=== PATIENT | female | born 1960 | race Caucasian/White ===

== ENCOUNTER 2021-10-10 10:31 | Emergency (ER) | payer BC ==
--- OUTSIDE RECORDS SUMMARY | 2021-10-10 10:36 | XMS REPORT | Continuity of Care Document ---
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 Medications Ordered Filled Start Stop Current Ordering Indication Dosage Frequency Signature Comments Components Source Medication Medication Date Date Medication? Clinician (SIG) Name Name Albuterol Albuterol 2017-08 Yes Alec [address] [facility] Sulfate HFA Sulfate HFA 2-26 [facility] Augmentin Augmentin 2017-08 Yes Alec [address] [facility] 2[facility] Vanacof DM Vanacof DM 2017-08 Yes Alec [address] [facility] 2-26 [facility] DayQuil DayQuil Yes Alec not [facility] Multi-Sympt Multi-Sympt [facility] defined [facility] NyQuil NyQuil Yes Alec not [facility] Procedures This patient has no known procedures. Encounters Start End Encounter Admission Attending Care Care Encounter Source Date/Time Date/Time Type Type Clinicians Facility Department ID 2021-09-14 Outpatient Sunday Wilde [facility] [id number] 11:12:56 [id number] [facility] 2019-10-28 2019-10-28 Outpatient Jed Cordoba [id number] [facility] [address] 10:30:00 10:30[facility] 2018-10-03 2018-10-03 Outpatient Jed Cordoba [address] 09:00:00 09:00:00 [facility] Results This patient has no known results.
--- NOTE | 2021-10-10 11:03 | RAD REPORT ---
EXAM DESCRIPTION: CT - Ct Stroke Brain Wo Cont - 10/10/2021 10:56 am CLINICAL HISTORY: NUMBNESS, code stroke exam COMPARISON: HEAD BRAIN W O CONTRAST dated 09/06/2014 TECHNIQUE: Axial 5 millimeter thick images of the head were obtained without IV contrast. All CT scans are performed using dose optimization technique as appropriate and may include automated exposure control or mA/KV adjustment according to patient size. FINDINGS: No intracranial hemorrhage, mass, or cerebral edema. No acute cortical based infarction. N o cortical edema or sulcal effacement. No extra-axial fluid collections. Howe matter-white matter di fferentiation is preserved.Brainstem and posterior fossa assessment is inherently limited on CT imagi ng. No abnormality suspected. Visualized portions of the mastoid air cells, paranasal sinuses, and orbits are unremarkable. Findings telephoned to Jason Page 10:58 p.m. IMPRESSION: No CT evidence of acute intracranial process.
[2021-10-10] MEDS ORDERED: ASPIRIN 81 MG CHEWABLE TABLET ONE (11:19)
[2021-10-10] MEDS ORDERED: NA CHLORIDE 0.9% 1,000 ML ONE (11:19)
[2021-10-10 11:20] LABS: Absolute Lymphocytes (CBC) 1.5 K/uL (0.7-4.9); Hematocrit 40.6 % (36.0-45.0); Lymphocytes % 31.4 % (15.3-44.8); MPV 7.8 fL (7.6-11.3); RBC Red Blood Cell Count 4.44 M/uL (3.86-4.86)
[2021-10-10] MEDS ORDERED: FOLIC ACID 5 MG/ML VIAL ONE (11:20)
[2021-10-10 11:25] LABS: Protime INR 0.97
--- NOTE | 2021-10-10 11:25 | RAD REPORT ---
EXAM DESCRIPTION: RAD - Chest Single View - 10/10/2021 11:18 am CLINICAL HISTORY: COUGH COMPARISON: Portable October 2014 TECHNIQUE: AP portable chest image was obtained 10/10/2021 11:18 am . FINDINGS: No focal mass or consolidation. Interstitial pattern is prominent but not clearly differen t. Prominent overlying soft tissues and under penetrated technique accentuate each lung base. Heart s ize is upper normal. Pericardial fat pads are present. Size is stable. Vasculature in the upper lung mcgee similar to comparison. No measurable pleural effusion and no pneumothorax. No acute bony abnor mality seen. No acute aortic findings suspected. IMPRESSION: No acute cardiopulmonary process. No significant change from comparison study.
--- NOTE | 2021-10-10 11:41 | RAD REPORT ---
EXAM DESCRIPTION: - CP - 10/10/2021 11:26 am CLINICAL HISTORY: Dizziness;Weakness COMPARISON: No comparisons TECHNIQUE: Real-time sonographic evaluation of bilateral carotid and vertebral systems was performed . Howe scale and Doppler interrogation were performed with waveform tracing bilaterally. FINDINGS: Normal high resistance waveforms are noted in both external carotid arteries. The common c arotid arteries and internal carotid arteries show normal low resistance waveforms. Small amount of calcified plaquing changes present in the left carotid bulb and the left bulb ECA xiomara ction. Visually there is no significant luminal narrowing. No significant plaquing noted on the right . Peak systolic and end diastolic velocity values and the ICA/CCA ratios are in the non-hemodynamical ly significant range. Antegrade flow seen in both vertebral arteries. Velocity values and ratios were recorded and are retained in the patient's imaging records. IMPRESSION: Mild left-sided carotid bulb atherosclerotic plaquing without visual evidence for lumina l narrowing. No significant plaquing changes in the right-sided carotid vasculature. No evidence of a hemodynamically significant stenosis.
[2021-10-10 11:43] LABS: ALT/SGPT 40 U/L (12-78); AST/SGOT 26 U/L (15-37); Albumin 3.9 g/dL (3.4-5.0); Alkaline Phosphatase 65 U/L (45-117); BUN Blood Urea Nitrogen 12 mg/dL (7-18); Bicarbonate 29 mmol/L (21-32); Bilirubin Direct < 0.1 mg/dL (0-0.2); Bilirubin Total 0.4 mg/dL (0.2-1.0); C-Reactive Protein 7.16 mg/L (<3.00); Glucose Level 104 mg/dL (74-106); Magnesium 2.1 mg/dL (1.8-2.4); NT PRO-BNP 199 pg/mL (<125); Potassium 3.8 mmol/L (3.5-5.1); Protein, Total 7.3 g/dL (6.4-8.2); Sodium Level 140 mmol/L (136-145)
--- NOTE | 2021-10-10 12:12 | RAD REPORT ---
EXAM DESCRIPTION: MRI - Brain Wo Cont - 10/10/2021 11:42 am CLINICAL HISTORY: TIA COMPARISON: MRI BRAIN W WO CONTRAST dated 09/06/2014; Ct Stroke Brain Wo Cont dated 10/10/2021 TECHNIQUE: Sagittal T1-weighted images were obtained along with axial PD, heavily T2-weighted and T2 -FLAIR images. Axial DWI and ADC mapping sequences were also obtained along with coronal heavily T2-w eighted images. FINDINGS: No intracranial hemorrhage, mass or acute infarction. There is no edema or shift of midlin e structures. No extra-axial fluid collections. Howe-matter/white matter junction is preserved. Signa l voids are seen as a normal finding in the major intracranial vessels. No measurable atrophy or chronic ischemic changes seen. Ventricles are normal. No globe or orbital co ntent abnormality seen. Mastoid air cells and paranasal sinuses are clear. No sella or supra sella abnormality. IMPRESSION: Unremarkable noncontrast MRI brain examination. No significant change from 2015 MRI.
--- NOTE | 2021-10-10 12:27 | ER ---
Nurse's Notes [facility] Name: Alysha Sam Age: 61 yrs Sex: Female : 1960 Arrival Date: 10/10/2021 Time: 10:33 Bed 20 Private MD: Diagnosis: Weakness;Essential (primary) hypertension Presentation: 10/10 10:39 Chief complaint: Patient states: Numbness to R side of face, R arm, and R hand, also ph reports general weakness, states that numbness began at approx 0830 today. Coronavirus screen: Vaccine status: Patient reports receiving the 2nd dose of the covid vaccine. Ebola Screen: No symptoms or risks identified at this time. Initial Sepsis Screen: Does the patient meet any 2 criteria? No. Patient's initial sepsis screen is negative. Does the patient have a suspected source of infection? No. Patient's initial sepsis screen is negative. Risk Assessment: Do you want to hurt yourself or someone else? Patient reports no desire to harm self or others. Onset of symptoms was October 10, 2021. 10:39 Method Of Arrival: Ambulatory ph 10:42 Acuity: JONATAN 2 ph Triage Assessment: 12:58 General: Appears in no apparent distress. Behavior is calm, cooperative, appropriate ll1 for age. Pain: Denies pain. Historical: - Allergies: 10:41 No Known Allergies; ph - PMHx: 10:41 Hyperlipidemia; ph - Immunization history:: Client reports receiving the 2nd dose of the Covid vaccine. - Social history:: Smoking status: Patient denies any tobacco usage or history of. - Family history:: not pertinent. Screenin:31 Abuse screen: Denies threats or abuse. Nutritional screening: No deficits noted. ll1 Tuberculosis screening: No symptoms or risk factors identified. Fall Risk IV access (20 points). Total Chávez Fall Scale indicates No Risk (0-24 pts). Assessment: 10:45 General: Appears in no apparent distress. Behavior is calm, cooperative, appropriate ll1 for age. Pain: Denies pain. Neuro: Level of Consciousness is awake, alert, obeys commands, Oriented to person, place, time, situation, Appropriate for age Lip Cutter And Scorer are equal bilaterally Moves all extremities. Full function Gait is steady, Speech is normal, Facial symmetry appears normal, Pupils are PERRLA, Reports numbness in left arm and face. Cardiovascular: No deficits noted. Respiratory: No deficits noted. Musculoskeletal: Circulation, motion, and sensation intact. Capillary refill < 3 seconds, Range of motion: intact in all extremities. 11:09 Reassessment: No changes from previously documented assessment. Patient and/or family ll1 updated on plan of care and expected duration. Pain level reassessed. Patient is alert, oriented x 3, equal unlabored respirations, skin warm/dry/pink. 12:00 Reassessment: No changes from previously documented assessment. Patient and/or family ll1 updated on plan of care and expected duration. Pain level reassessed. Patient is alert, oriented x 3, equal unlabored respirations, skin warm/dry/pink. 12:45 Reassessment: Patient appears in no apparent distress at this time. No changes from ll1 previously documented assessment. Patient and/or family updated on plan of care and expected duration. Pain level reassessed. Patient is alert, oriented x 3, equal unlabored respirations, skin warm/dry/pink. Vital Signs: 10:39 BP 158 / 94; Pulse 73; Resp 18; Temp 97.8; Pulse Ox 99% on R/A; Weight 102.06 kg; ph Height 5 ft. 2 in. (157.48 cm); 12:50 BP 155 / 90; Pulse 58; Resp 17; ll1 10:39 Body Mass Index 41.15 (102.06 kg, 157.48 cm) ph NIH Stroke Scale Scores: 12:24 NIHSS Score: 0 luciano ED Course: 10:33 Patient arrived in ED. mr 10:41 Triage completed. ph 10:42 Arm band placed on Patient placed in an exam room. ph 10:51 Jason Mason MD is Attending Physician. luciano 10:56 CT Stroke Brain w/o Contrast In Process Unspecified. EDMS 11:01 Kisha Veliz, BROOKS is Primary Nurse. ll1 11:05 Missed attempt(s): 22 gauge in left forearm. Bleeding controlled, band aid applied, ll1 catheter tip intact. 11:09 Inserted saline lock: 22 gauge in left antecubital area, using aseptic technique. Blood ll1 collected. 11:18 XRAY Chest (1 view) In Process Unspecified. EDMS 11:26 US Carotid Artery Bilateral In Process Unspecified. EDMS 11:31 Patient has correct armband on for positive identification. Bed in low position. Call ll1 light in reach. Side rails up X2. ekg monitor tech on. Pulse ox on. NIBP on. 11:40 Brain Wo Cont In Process Unspecified. EDMS 12:26 Stevie Martini MD is Referral Physician. luciano 12:45 IV discontinued, intact, bleeding controlled, No redness/swelling at site. Pressure ll1 dressing applied. 12:58 No provider procedures requiring assistance completed. ll1 Administered Medications: 12:00 Drug: NS 0.9% 1000 ml Route: IV; Rate: 1 bolus; Site: left antecubital; iw 13:00 Follow up: Response: No adverse reaction; IV Status: Completed infusion; IV Intake: ll1 200ml 12:00 Drug: foLIC Acid 1 mg Route: IVPB; Site: left antecubital; iw 12:51 Follow up: Response: No adverse reaction; IV Status: Completed infusion; IV Intake: ll1 0.2ml 12:00 Drug: Aspirin Chewable Tablet 324 mg Route: PO; iw 12:50 Follow up: Response: No adverse reaction ll1 Intake: 12:51 IV: 0ml; Total: 0ml. ll1 13:00 IV: 200ml; Total: 200ml. ll1 Outcome: 12:26 Discharge ordered by . luciano 12:51 Patient left the ED. ll1 12:51 Discharged to home ambulatory. ll1 12:51 Condition: stable 12:51 Discharge instructions given to patient, Instructed on discharge instructions, follow up and referral plans. medication usage, Demonstrated understanding of instructions, follow-up care, medications, Prescriptions given X 1. NIH Stroke Scale - NIH Stroke Score Date: 10/10/2021 Time: 12:24 Total Score = 0 1a. Level of Consciousness (LOC) - 0(Alert) 1b. Level of Consciousness (LOC) (Month \T\ Age) - 0(Both) 1c. LOC Commands (Open \T\ Closes Eyes/Typewriter Assembly And Parts Inspector) - 0(Both) 2. Best Gaze (Lateral Gaze Paresis) - 0(Normal) 3. Visual Field Loss - 0(No visual loss) 4. Facial Palsy - 0(Normal) 5a. Left Arm: Motor (10-second hold) - 0(No drift) 5b. Right Arm: Motor (10-second hold) - 0(No drift) 6a. Left Leg: Motor (5-second hold - always test supine) - 0(No drift) 6b. Right Leg: Motor (5-second hold - always test supine) - 0(No drift) 7. Limb Ataxia (finger/nose \T\ heel/poole - test with eyes open) - 0(Absent) 8. Sensory Loss (pinprick arms/legs/face) - 0(Normal) 9. Best Language: Aphasia (description/naming/reading) - 0(No aphasia) 10. Dysarthria (speech clarity - read or repeat words) - 0(Normal) 11. Extinction and Inattention (visual/tactile/auditory/spatial/personal) - 0(No abnormality) Initials: luciano Signatures: Dispatcher [employer] EDJason Tobin MD MD cha Rivera, Elke Lilly, RN BROOKS Laura Lares RN RN Kisha Veliz RN RN ll1 Corrections: (The following items were deleted from the chart) 10:42 10:39 Acuity: JONATAN 3 ph ph
--- NOTE | 2021-10-10 12:27 | EDPHYS ---
Physician Documentation [facility] Name: Alysha Sam Age: 61 yrs Sex: Female : 1960 Arrival Date: 10/10/2021 Time: 10:33 Bed 20 Private MD: ED Physician Jason Mason HPI: 10/10 12:19 This 61 yrs old Female presents to ER via Ambulatory with complaints of Left luciano side Numbness,shaking. 12:19 The patient's problem is reported as weakness, in the right side of face. Onset: The luciano symptoms/episode began/occurred today. Duration: The episode is continuous. Context: the episode(s) was witnessed, by no one, symptoms became apparent on October 10, 2021. The symptoms are alleviated by nothing. The symptoms are aggravated by nothing. Associated signs and symptoms: The patient has no apparent associated signs or symptoms. Severity of symptoms: At their worst the symptoms were mild in the emergency department the symptoms are unchanged. Patient's baseline: Neuro: alert and fully oriented. The patient has not experienced similar symptoms in the past. Historical: - Allergies: 10:41 No Known Allergies; ph - PMHx: 10:41 Hyperlipidemia; ph - Immunization history:: Client reports receiving the 2nd dose of the Covid vaccine. - Social history:: Smoking status: Patient denies any tobacco usage or history of. - Family history:: not pertinent. ROS: 12:19 Constitutional: Negative for fever, chills, and weight loss, Eyes: Negative for injury, luciano pain, redness, and discharge, ENT: Negative for injury, pain, and discharge, Neck: Negative for injury, pain, and swelling, Cardiovascular: Negative for chest pain, palpitations, and edema, Respiratory: Negative for shortness of breath, cough, wheezing, and pleuritic chest pain, Abdomen/GI: Negative for abdominal pain, nausea, vomiting, diarrhea, and constipation, Back: Negative for injury and pain, : Negative for injury, bleeding, discharge, and swelling, MS/Extremity: Negative for injury and deformity, Skin: Negative for injury, rash, and discoloration, Psych: Negative for depression, anxiety, suicide ideation, homicidal ideation, and hallucinations, Allergy/Immunology: Negative for hives, rash, and allergies, Endocrine: Negative for neck swelling, polydipsia, polyuria, polyphagia, and marked weight changes, Hematologic/Lymphatic: Negative for swollen nodes, abnormal bleeding, and unusual bruising. 12:19 Neuro: Positive for weakness, of the forehead, right cheek, right ear, right synagogue, right jaw, right arm, left arm, right leg and left leg. Exam: 12:19 Radiologist reports: negative luciano 12:19 Constitutional: This is a well developed, well nourished patient who is awake, alert, and in no acute distress. Head/Face: Normocephalic, atraumatic. Eyes: Pupils equal round and reactive to light, extra-ocular motions intact. Lids and lashes normal. Conjunctiva and sclera are non-icteric and not injected. Cornea within normal limits. Periorbital areas with no swelling, redness, or edema. ENT: Nares patent. No nasal discharge, no septal abnormalities noted. Tympanic membranes are normal and external auditory canals are clear. Oropharynx with no redness, swelling, or masses, exudates, or evidence of obstruction, uvula midline. Mucous membranes moist. Neck: Trachea midline, no thyromegaly or masses palpated, and no cervical lymphadenopathy. Supple, full range of motion without nuchal rigidity, or vertebral point tenderness. No Meningismus. Chest/axilla: Normal chest wall appearance and motion. Nontender with no deformity. No lesions are appreciated. Cardiovascular: Regular rate and rhythm with a normal S1 and S2. No gallops, murmurs, or rubs. Normal PMI, no JVD. No pulse deficits. Respiratory: Lungs have equal breath sounds bilaterally, clear to auscultation and percussion. No rales, rhonchi or wheezes noted. No increased work of breathing, no retractions or nasal flaring. Abdomen/GI: Soft, non-tender, with normal bowel sounds. No distension or tympany. No guarding or rebound. No evidence of tenderness throughout. Back: No spinal tenderness. No costovertebral tenderness. Full range of motion. Skin: Warm, dry with normal turgor. Normal color with no rashes, no lesions, and no evidence of cellulitis. MS/ Extremity: Pulses equal, no cyanosis. Neurovascular intact. Full, normal range of motion. Neuro: Awake and alert, GCS 15, oriented to person, place, time, and situation. Cranial nerves II-XII grossly intact. Motor strength 5/5 in all extremities. Sensory grossly intact. Cerebellar exam normal. Normal gait. Psych: Awake, alert, with orientation to person, place and time. Behavior, mood, and affect are within normal limits. 12:19 ECG was reviewed by the Attending Physician. Vital Signs: 10:39 BP 158 / 94; Pulse 73; Resp 18; Temp 97.8; Pulse Ox 99% on R/A; Weight 102.06 kg; ph Height 5 ft. 2 in. (157.48 cm); 12:50 BP 155 / 90; Pulse 58; Resp 17; ll1 10:39 Body Mass Index 41.15 (102.06 kg, 157.48 cm) ph NIH Stroke Scale Scores: 12:24 NIHSS Score: 0 luciano MDM: 10:51 Patient medically screened. luciano 12:25 Differential diagnosis: CVA, TIA, metabolic disorder. Data reviewed: vital signs, [facility] nurses notes, lab test result(s), EKG, radiologic studies. Data interpreted: secured entrance monitor: rate is 73 beats/min, rhythm is regular, Pulse oximetry: is not applicable for this patient encounter. Test interpretation: by ED physician or midlevel provider: ECG, plain radiologic studies. Counseling: I had a detailed discussion with the patient and/or guardian regarding: the historical points, exam findings, and any diagnostic results supporting the discharge/admit diagnosis, lab results, radiology results, the need for outpatient follow up, for definitive care, a family practitioner, a neurologist. 10/10 10:53 Order name: Basic Metabolic Panel; Complete Time: 12: [facility] 10/10 10:53 Order name: CBC with Diff [facility] 10/10 10:53 Order name: LFT's; Complete Time: 12: [facility] 10/10 10:53 Order name: Magnesium; Complete Time: 12: [facility] 10/10 10:53 Order name: NT PRO-BNP; Complete Time: 12:[address] [facility] 10/10 10:53 Order name: PT-INR; Complete Time: 12:[address] [facility] 10/10 10:53 Order name: Troponin HS; Complete Time: 12:[address] [facility] 10/10 10:53 Order name: XRAY Chest (1 view); Complete Time: 12:02 10/10 10:53 Order name: Sed Rate [facility] 10/10 10:53 Order name: CRP; Complete Time: 12:[address] [facility] 10/10 10:53 Order name: CT Stroke Brain w/o Contrast; Complete Time: 12:[address] [facility] 10/10 11:00 Order name: US Carotid Artery Bilateral; Complete Time: 12:[address] [facility] 10/10 11:11 Order name: Brain Wo Cont EDMS 10/10 10:53 Order name: EKG; Complete Time: 10:[address] [facility] 10/10 10:53 Order name: Cardiac monitoring; Complete Time: 11:[address] [facility] 10/10 10:53 Order name: EKG - Nurse/Tech; Complete Time: 11:[address] [facility] 10/10 10:53 Order name: IV Saline Lock; Complete Time: 10:[address] [facility] 10/10 10:53 Order name: Labs collected and sent; Complete Time: 10:[address] [facility] 10/10 10:53 Order name: O2 Per Protocol; Complete Time: 10:[address] [facility] 10/10 10:53 Order name: O2 Sat Monitoring; Complete Time: 10:[address] [facility] EC:19 Rate is 61 beats/min. Rhythm is regular. QRS Roann is Normal. IA interval is normal. QRS luciano interval is normal. QT interval is normal. No Q waves. T waves are Normal. No ST changes noted. Clinical impression: Normal ECG and No evidence of ischemia. Interpreted by me. Reviewed by me. Administered Medications: 12:00 Drug: NS 0.9% 1000 ml Route: IV; Rate: 1 bolus; Site: left antecubital; iw 13:00 Follow up: Response: No adverse reaction; IV Status: Completed infusion; IV Intake: ll1 200ml 12:00 Drug: foLIC Acid 1 mg Route: IVPB; Site: left antecubital; iw 12:51 Follow up: Response: No adverse reaction; IV Status: Completed infusion; IV Intake: ll1 0.2ml 12:00 Drug: Aspirin Chewable Tablet 324 mg Route: PO; iw 12:50 Follow up: Response: No adverse reaction ll1 Disposition Summary: 10/10/21 12:26 Discharge Ordered Location: Home luciano Problem: new luciano Symptoms: have improved luciano Condition: Stable luciano Diagnosis - Weakness luciano - Essential (primary) hypertension luciano Followup: luciano - With: Private Physician - When: 2 - 3 days - Reason: Recheck today's complaints, Continuance of care, Re-evaluation by your physician Followup: luciano - With: Stevie Martini MD - When: 2 - 3 days - Reason: Recheck today's complaints, Re-evaluation by your physician Discharge Instructions: - Discharge Summary Sheet luciano - Hypertension, Adult luciano - Weakness luciano - Fatigue luciano - Hypertension, Adult, [id number] luciano - How to Take Your Blood Pressure, [id number] luciano - Weakness, [id number] luciano - Aspirin and Your Heart luciano - Managing Your Hypertension luciano Forms: - Medication Reconciliation Form luciano - Thank You Letter luciano - Antibiotic Education luciano - Prescription Opioid Use luciano Prescriptions: - Folic Acid 1 mg Oral Tablet - take 1 tablet by ORAL route once daily; 30 tablet; Refills: 0, Product luciano Selection Permitted NIH Stroke Scale - NIH Stroke Score Date: 10/10/2021 Time: 12:24 Total Score = 0 1a. Level of Consciousness (LOC) - 0(Alert) 1b. Level of Consciousness (LOC) (Month \T\ Age) - 0(Both) 1c. LOC Commands (Open \T\ Closes Eyes/Toy Assembly Supervisor) - 0(Both) 2. Best Gaze (Lateral Gaze Paresis) - 0(Normal) 3. Visual Field Loss - 0(No visual loss) 4. Facial Palsy - 0(Normal) 5a. Left Arm: Motor (10-second hold) - 0(No drift) 5b. Right Arm: Motor (10-second hold) - 0(No drift) 6a. Left Leg: Motor (5-second hold - always test supine) - 0(No drift) 6b. Right Leg: Motor (5-second hold - always test supine) - 0(No drift) 7. Limb Ataxia (finger/nose \T\ heel/poole - test with eyes open) - 0(Absent) 8. Sensory Loss (pinprick arms/legs/face) - 0(Normal) 9. Best Language: Aphasia (description/naming/reading) - 0(No aphasia) 10. Dysarthria (speech clarity - read or repeat words) - 0(Normal) 11. Extinction and Inattention (visual/tactile/auditory/spatial/personal) - 0(No abnormality) Initials: [facility] Signatures: Dispatcher [employer] Jason Castellon MD MD cha Williams, Irene, RN RN iw Hall, Patricia, RN RN Kisha Terry RN ll1 Corrections: (The following items were deleted from the chart) 11 11:01 MR STROKE PROTOCOL+MRI.RAD.BRZ ordered. EDMS EDMS
[2021-10-10 13:11] VITALS: BP 158/94; TEMP 97.8; O2SAT 99
--- NOTE | 2021-10-11 07:25 | EKG ---
Test Date: 2021-10-10 Test Time: 11:05:07 Solutions Architect Consultant: MXAIMO MEASUREMENT RESULTS: Intervals: Rate: 61 [place]: 142 QRSD: 86 QT: 378 QTc: 380 [place]: P: 35 [place]: 142 QRS: 67 T: 26 INTERPRETIVE STATEMENTS: Normal sinus rhythm Nonspecific T wave abnormality Abnormal ECG Compared to ECG 09/05/2017 14:22:36 T-wave abnormality now present Sinus bradycardia no longer present Electronically Signed On 10-11-21 07:22:45 POLICE OFFICER BOOKING by Danny Chin
== END 2021-10-10 12:51 | disposition home or self-care (01) ==
LOC: ER 10:31
DX: I10 Essential (primary) hypertension (principal); E78.5 Hyperlipidemia, unspecified
CPT/HCPCS: 96365; 93005; 85025; 80048; 36415; 83735; 85610; 80076; 85652; 84484; 83880; 86140; 70450; 71045; 93880; 70551; 99284; J7030